=== PATIENT | male | born 1960 | race Caucasian/White ===

== ENCOUNTER 2018-04-07 10:48 | Outpatient (CLI) | payer OTHER | END 2018-04-07 10:59 | disposition home or self-care (01) | LOC: RAD 10:48 | DX: J11.1 Influenza due to unidentified influenza virus with other respiratory manifestations (principal); J44.9 Chronic obstructive pulmonary disease, unspecified ==

== ENCOUNTER 2020-07-30 08:07 | Outpatient (CLI) | payer OTHER | END 2020-07-30 08:09 | disposition home or self-care (01) | LOC: NUCLEAR 08:07 | PROVIDERS: ATTEND Internal Medicine Cardiovascular Disease | DX: R07.89 Other chest pain (principal); I10 Essential (primary) hypertension ==